=== PATIENT | male | born 1980 | race African-American/Black ===

== ENCOUNTER 2024-07-01 14:43 | Emergency (ER) | payer SELFPAY ==
[2024-07-01] MEDS: Magnesium Citrate Solution 296 ML Bottle PO ONE (20:30)
== END 2024-07-01 20:30 | disposition home or self-care (01) ==
LOC: JD.ED 14:43
DX: K59.00 Constipation, unspecified (principal); F17.210 Nicotine dependence, cigarettes, uncomplicated
CPT/HCPCS: 74018; 99284; A9270